=== PATIENT | female | born 1965 | race Caucasian/White ===

== ENCOUNTER 2019-12-29 01:47 | Emergency (ER) | payer BC, SELFPAY ==
--- NOTE | ~2019-12-29 | XR_ITS ---
EXAMINATION: XR chest 2V DATE: 12/29/2019 02:54 INDICATION: Cough and shortness of breath. TECHNIQUE: Frontal and lateral views of the chest were obtained. COMPARISON: None. FINDINGS: There is blunting of the posterior costophrenic angles. No pneumonia or pneumothorax. The h eart size is normal. IMPRESSION: 1. Blunting of the posterior costophrenic angles, consistent with scarring versus tiny pleural effusi ons. Reviewed, dictated and finalized at location A. IMPRESSION: 1. Blunting of the posterior costophrenic angles, consistent with scarring vers us tiny pleural effusions.
--- NOTE | 2019-12-29 01:54 | ECG_ITS ---
Measurements Intervals [place] Rate: 96 P: 34 AL: 175 QRS: -10 QRSD: 88 T: 45 QT: 330 QTc: 418 Interpretive Statements SINUS RHYTHM BORDERLINE R WAVE PROGRESSION, ANTERIOR LEADS BASELINE WANDER- I, III BORDERLINE ECG Electronically Signed On 12-29-2019 7:31:40 CDT by Washington Hughes D.O.
--- NOTE | 2019-12-29 01:57 | ED.SOB ---
HPI - SOB/Dyspnea General Chief Complaint: Shortness of Breath/Dyspnea Stated Complaint: SOB Time Seen by Provider: 12/29/19 01:48 Source: RN notes reviewed History of Present Illness HPI Narrative: Patient presents emergency department from home for shortness of breath. Patient states that she woke from sleep approximately 30 minutes ago feeling like she was drowning . She states she is felt short of breath since that time with a wet cough. She states she went to bed at 11 PM with no symptoms has felt fine all day today denies any fevers or chills chest pain abdominal pain nausea vomiting or any other symptoms. Patient states she does have a history of sleep apnea and supposed to wear CPAP machine but has not worn it for several years patient states she also had a history of GERD in the past and used to be on a PPI but it stopped after she had a bypass surgery Related Data Allergies Allergy/AdvReac Type Severity Reaction Status Date / Time No Known Allergies Allergy Unknown Unverified 10/09/16 10:33 Review of Systems Review of Systems: Narrative: Gen.: Denies fevers or chills ENT: Denies congestion Respiratory: See HPI CV: Denies chest pain or palpitations GI: Denies abdominal pain nausea, emesis or diarrhea Musculoskeletal: Denies back pain or muscle pain Neuro: Denies numbness, tingling, weakness or focal weakness Skin: Denies rash Except as documented, all other systems reviewed and negative [facility] Past Medical History Medical History (Updated 12/29/19 @ 04:17 by Dylan Perez DO) Diabetes mellitus GERD (gastroesophageal reflux disease) Hypercholesterolemia Hypertension Sleep apnea Social History Social History Smoking status: Never smoker Alcohol intake: current Exam Narrative: Exam Narrative: APPEARANCE: No acute distress, nontoxic, resting in bed EYES: EOMI HEENT: Normocephalic, atraumatic, OMM RESPIRATORY: No respiratory distress Clear to auscultation bilaterally with no rhonchi wheezing or rales. CARDIOVASCULAR: Regular rate and rhythm without murmurs rubs or gallops. ABDOMINAL: Soft, nontender, nondistended, no rebound or guarding MUSCULOSKELETAl: Moves all extremities. No clubbing, cyanosis or edema. NEURO: Awake and alert. Following commands, speech normal, no focal deficits SKIN:: Warm, dry. No rashes lesions or abrasions PSYCHIATRIC: Normal affect/mood, Course Course Emergency Course: Patient states she felt better in the ER but continued states she felt like at times something would come up in her throat and she would cough on it patient was given a GI cocktail with resolution of the symptoms Patient states since having GI cocktail her symptoms are resolved feels ready for discharge Discussed with patient results of workup and diagnosis. Discussed need for follow-up with primary care, proper use of medication, and reasons to return to the emergency department. Patient understands and agrees to current treatment plan Vital Signs Vital signs: Vital Signs Temperature 96.6 F L 12/29/19 01:59 Pulse Rate 98 12/29/19 01:59 Respiratory Rate 19 12/29/19 01:59 Blood Pressure 178/85 H 12/29/19 01:59 Pulse Oximetry 99 12/29/19 01:59 Temperature 96.6 F L 12/29/19 01:59 Pulse Rate 100 12/29/19 03:45 Respiratory Rate 16 12/29/19 03:45 Blood Pressure 162/66 H 12/29/19 03:45 Pulse Oximetry 99 12/29/19 03:45 MDM - SOB/Dyspnea MDM Narrative Medical decision making narrative: Patient has dyspnea of unclear etiology. No wheezing on clinical exam. Low risk well score, PE is felt unlikely. No abnormalities noted on chest x-ray. Patient?s EKG is without high-risk changes. Oxygen saturations are normal. Patient is felt to be a reasonable candidate for additional evaluation as an outpatient. Lab Data Result diagrams: 12/29/19 01:57 12/29/19 01:57 Labs: Lab Results 12/29/19 12/29/1912/28
[2019-12-29 01:59] VITALS: BP 178/85; PULSE 98; RESP 19; TEMP 35.9; O2SAT 99
[2019-12-29 02:07] LABS: Basophils Absolute Auto 0.1 K/mm3 (0.0-0.1); Basophils Percent Auto 0.5 % (0.2-1.2); Eosinophils Absolute Auto 0.1 K/mm3 (0-0.3); Eosinophils Percent Auto 1.2 % (0-4.4); Hemoglobin 14.2 g/dL (12.0-15.0); Immature Granulocyte Absolute 0.05 K/mm3 (0.00-0.031); Immature Granulocyte Percent A 0.5 % (0-0.5); Immature Platelet Fraction Pct 12.5 % (0.9-11.2); Lymphocytes Absolute Auto 4.07 K/mm3 (0.9-3.2); Lymphocytes Percent Auto 42.9 % (18.3-44.2); Mean Corpuscular Volume 90.9 fl (80-100); Mean Platelet Volume 13.7 fl (7.4-10.4); Monocytes Absolute Auto 0.7 K/mm3 (0.1-0.6); Monocytes Percent Auto 7.8 % (2.6-8.5); Neutrophils Absolute Auto 4.5 K/mm3 (1.3-6.7); Neutrophils Percent Auto 47.1 % (45.5-73.1); Platelet Count Result 173 k/mm3 (150-375); Red Blood Count 4.73 M/mm3 (4.2-5.4); Red Cell Distribution Width 12.7 % (11.5-14.5); White Blood Count 9.5 K/mm3 (4.5-10.0)
[2019-12-29] MEDS: ALBUTEROL SULFATE NEB 2.5 MG/0.5 ML INH 5 MG INHALATION (02:11)
[2019-12-29] MEDS: IPRATROPIUM BR 0.02% INH SOLN 0.5 MG/2.5 ML VIAL INHALATION (02:11)
[2019-12-29 02:16] LABS: INR 0.9; Prothrombin Time 11.9 Seconds (11.1-14.7)
[2019-12-29 02:17] LABS: Blood Urea Nitrogen 16 mg/dL (7-17); Calcium 9.4 mg/dL (8.4-10.2); Carbon Dioxide 26 mmol/L (22-30); Chloride 103 mmol/L (98-107); Estimated CRCL calculation 85 ml/min; Estimated Glomerular Filt Rate > 60; Glucose 229 mg/dL (65-105); Partial Thromboplastin Time 23.5 SECONDS (22.3-36.8); Sodium 138 mmol/L (137-145)
[2019-12-29 02:26] LABS: Alveolar/Arterial O2 Gradient 36.5 mmHg; Base Excess ABG 0.5 mEq/l (+/-2.0); Fractional Inspired Oxygen 21 %; HCO3 ABG 25.2 mEq/l (22.0-26.0); Oxygen Content ABG 17.8 %vol (16.0-22.0); Oxygen Saturation ABG 92.5 % (95.0-100.0); Oxyhemoglobin 90.4 % THb (90.0-100.0); PCO2 ABG 41.2 mmHg (35.0-45.0); PO2 ABG 63.9 mmHg (80.0-100.0); PO2 FiO2 Ratio Arterial Blood 3.04 %; pH ABG 7.405 (7.350-7.450)
[2019-12-29 02:27] LABS: Device ROOM AIR; Site Drawn RIGHT BRACHIAL
[2019-12-29 02:29] LABS: NT Pro B Type Natriuretic Pept 30 PG/ML (5-100); Troponin I < 0.012 ng/mL (0.000-0.034)
[2019-12-29 02:30] VITALS: BP 163/77; PULSE 88; PULSE 99; RESP 13; RESP 19; O2SAT 100
[2019-12-29 02:36] VITALS: PULSE 86; RESP 20
[2019-12-29 03:00] VITALS: BP 124/49; PULSE 107; RESP 18; O2SAT 97
[2019-12-29 03:45] VITALS: BP 162/66; PULSE 100; RESP 16; O2SAT 99
--- NOTE | 2019-12-29 03:45 | PC.NURSE ---
pt states she feels a lot better than she did when she first arrived to ed. she states since shes gotten the GI cocktail, she still has the build up feeling in her chest but doesn't feel the need to cough it up anymore. notified.
[2019-12-29 04:33] VITALS: BP 134/65; PULSE 96; RESP 14; O2SAT 94
== END 2019-12-29 04:44 | disposition home or self-care (01) ==
PROVIDERS: Emergency Provider Emergency Medicine; PCP Internal Medicine
DX: K21.9 Gastro-esophageal reflux disease without esophagitis (principal); R06.00 Dyspnea, unspecified; E11.9 Type 2 diabetes mellitus without complications; E78.00 Pure hypercholesterolemia, unspecified; I10 Essential (primary) hypertension; G47.30 Sleep apnea, unspecified; R94.31 Abnormal electrocardiogram [ECG] [EKG]
CPT/HCPCS: 36415; 36600; 71046; 80048; 82805; 83880; 84484; 85025; 85055; 85610; 85730; 93005; 94640; 99284; A9270

== ENCOUNTER → 2020-08-20 10:33 | Outpatient (CLI) | payer BC, SELFPAY ==
--- NOTE | ~2020-08-20 | US_ITS ---
EXAMINATION: US pelvic complete EXAM DATE: 08/20/2020 11:44 INDICATION: Endometrial stripe, screening. Abnormal discharge during periods. TECHNIQUE: Pelvic transabdominal sonogram was performed. There are multiple grayscale and Doppler im ages available for interpretation. There is no prior study for comparison. FINDINGS: Uterus measures 15.7 x 10.5 x 1.2 cm, with a focal region most likely centrally positioned heterogeneous and relatively avascular mass measuring 7.8 cm, most likely a fibroid (this is likely the same mass identified on prior ultrasound measuring 5.3 cm, with increase in size). This is obscur ing the endometrium which is not well-visualized. There is no free pelvic fluid. Right adnexa: The ovary is not identified. There is no adnexal mass. Left adnexa: The ovary is not identified. There is no adnexal mass. IMPRESSION: Centrally positioned uterine mass most likely fibroid with interval increase in size comp ared to 2016. Endometrium is obscured by this and not well evaluated. If there is further clinical co ncern, pelvic MRI without and with contrast could be obtained. Reviewed, dictated and finalized at location A. L HANDLER IMPRESSION: Centrally positioned uterine mass most likely fibroid with interval increase in size compared to 2016. Endometrium is obscured by this and not wel l evaluated. If there is further clinical concern, pelvic MRI without and with contrast could be obtained.
--- NOTE | ~2020-08-20 | DEXA_ITS ---
Bone Density Report Name: Estephanie Davis Age: 55 Sex: Female Ethnicity: White Date of : 1965 Indication: screening for osteoporosis; Referring Provider: Camille, Lisa Study: Bone densitometry was performed. Exam Date: August 20, 2020 Accession number: [id number] Bone Density: Region BMD T-score Z-score Classification AP Spine (L1-L4) 1.174 1.2 2.1 Normal Femoral Neck (Left) 1.096 2.2 3.2 Normal Total Hip (Left) 1.288 2.8 3.4 Normal Femoral Neck (Right) 1.095 2.2 3.2 Normal Total Hip (Right) 1.254 2.6 3.2 Normal Total Hip Mean 1.271 2.7 3.3 Normal World Health Organization criteria for BMD impression classify patients as: Normal (T-score at or above -1.0), Osteopenia (T-score between -1.0 and -2.5), or Osteoporosis (T-score at or below -2.5). 10-year Fracture Risk: FRAX not reported because: Premenopausal woman All T-scores for Spine Total, Hip Total, Femoral Neck at or above -1.0 Treated for osteoporosis Clinical Information Provided by Patient: Is being treated for osteoporosis Has used the following medications: HRT (i.e. estrogen/hormone therapy), Vitamin D, Calcium, MTV Patient maximum height was 64.0 No regular weight bearing exercise Does not regularly consume dairy products Drinks caffeinated beverages Onset of menses at age 14 Premenopausal Number of children 1 Missed period for more than 6 months in a row Impression: The patient's bone mass is within expected range for age, gender and ethnicity. Discussion: It is important to ask patients whether they are taking their medications and to encourage continued and appropriate compliance with their osteoporosis therapies to reduce fracture risk. It is also important to review their risk factors and encourage appropriate calcium and vitamin D intakes, exercise, fall prevention and other lifestyle measures. Follow-Up: Consider a repeat BMD and Vertebral Fracture Assessment (VFA) exam in 2 years or sooner if medically necessary, to reassess this patient's status. Reported by: JANNY on 08/20/2020 11:26:00 AM. Reviewed, dictated and finalized at location AYariel TAVARES
--- NOTE | ~2020-08-20 | MM_ITS ---
EXAMINATION: MM screening kait BI w tang HISTORY: Screening mammogram TECHNIQUE: Craniocaudal and mediolateral oblique 3-D tomosynthesis images were obtained and synthetic 2-D images were generated. CAD analysis was submitted and interpreted. COMPARISON: 04/04/2016, 03/10/2014, 12/16/2012 bilateral digital screening mammogram examinations BREAST PARENCHYMAL COMPOSITION: There are scattered areas of fibroglandular density. FINDINGS: Numerous punctate benign microcalcifications are noted bilaterally, more numerous on the le ft. There is no evidence of suspicious mass, calcification, or architectural distortion to suggest ma lignancy in either breast. There has been no suspicious interval change. IMPRESSION: 1. No mammographic evidence of malignancy. 2. Recommend routine screening mammography in one year. BI-RADS Category 2: Benign finding(s). Reviewed, dictated and finalized at location A. 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
== END ==
PROVIDERS: Visit Provider Nurse Practitioner
DX: Z12.31 Encounter for screening mammogram for malignant neoplasm of breast (principal); Z78.0 Asymptomatic menopausal state; N95.0 Postmenopausal bleeding; N85.8 Other specified noninflammatory disorders of uterus
CPT/HCPCS: 76856; 77063; 77067; 77080

== ENCOUNTER 2022-05-05 01:30 | Day surgery (SDC) | payer BC, SELFPAY ==
[2022-04-19 11:51] VITALS: BMI 30.7
[2022-05-05 10:07] VITALS: BP 139/76; PULSE 102; RESP 20; TEMP 36.2; O2SAT 99; BMI 31.4
--- NOTE | 2022-05-05 10:25 | PM.HPGS ---
History of Present Illness History of Present Illness Consent: Risks, benefits, and alternatives have been discussed and questions answered. Patient agrees to proceed with procedure. Chief complaint: neoplasm screening Narrative: Estephanie Davis is a 57 year old female who is here for colon cancer screening, And for follow-up of ulcerative proctitis which was diagnosed 5 years ago. Review of Systems Review of Systems: All systems reviewed & are unremarkable except as noted in HPI and below PMFSH Past Medical History Medical History Diabetes mellitus GERD (gastroesophageal reflux disease) Hypercholesterolemia Hypertension Sleep apnea Surgical History Surgical History Gastric bypass status for obesity History of carpal tunnel release History of hysteroscopy Social History Social History Social History: Caffeine-coffee daily Smoking status: Never smoker Alcohol intake: never Substance use type: does not use Living arrangements: with family Spiritual care concerns: No Meds Home Medications and Allergies Home Medications Medication Instructions Recorded Confirmed Type atorvastatin 20 mg tablet 20 mg PO DAILY 12/31/19 04/19/22 History cholecalciferol (vitamin D3) 50 50 mcg PO DAILY 12/31/19 04/19/22 History mcg (2,000 unit) capsule insulin lispro 100 unit/mL See Rx Instructions subcut 12/31/19 04/19/22 History subcutaneous solution (Humalog USEASDIRECTD U-100 Insulin) losartan 50 mg tablet 50 mg PO DAILY 12/31/19 04/19/22 History medroxyprogesterone 2.5 mg tablet 2.5 mg PO DAILY 12/31/19 04/19/22 History spironolactone 100 mg tablet 100 mg PO DAILY 12/31/19 04/19/22 History venlafaxine 150 mg See Rx Instructions .Route 04/05/22 04/19/22 Rx capsule,extended release 24 hr .COMPLEX #90 caps venlafaxine 75 mg capsule,extended See Rx Instructions .Route 04/17/22 04/19/22 Rx release 24 hr .COMPLEX #90 caps empagliflozin 25 mg tablet 25 mg PO DAILY 04/19/22 04/19/22 History (Jardiance) ferrous sulfate 325 mg (65 mg 325 mg PO EVERY OTHER DAY 04/19/22 04/19/22 History iron) tablet Allergies Allergy/AdvReac Type Severity Reaction Status Date / Time No Known Allergies Allergy Unknown Verified 05/05/22 10:06 Vital Signs Vital Signs - 24 hr 05/05/22 10:07 Temperature 36.2 C L Pulse Rate 102 H Respiratory Rate 20 Blood Pressure 139/76 Pulse Oximetry 99 Oxygen Delivery Room Air Exam Const: General: alert Orientation/consciousness: patient oriented x3 Resp: Auscultation: clear to auscultation bilaterally Cardio: Rhythm: regular rhythm GI: GI Palp: Yes Soft to palpation and No Tenderness to palpation present (GI) Neuro: General: patient oriented x3 Assessment and Plan Assessment and plan (1) Screening for colon cancer: Code(s): Z12.11 - Encounter for screening for malignant neoplasm of colon Status: Acute Assessment and Plan: Colonoscopy with possible biopsy or polypectomy or cautery or injection of substances.
[2022-05-05] MEDS: LACTATED RINGERS 1,000 ML 150 ML IV CONT (10:26)
--- NOTE | 2022-05-05 10:28 | SUR.PREOP ---
BS 75. Pt asymptomatic. Dr. Hercules at bedside and aware of reading. Insulin pump turned off. Pt understands to monitor physical signs and symptoms of hypoglycemia, but states she feels well at this time.
[2022-05-05 10:31] LABS: Glucose Point of Care 75 mg/dl (65-105)
--- NOTE | 2022-05-05 10:31 | WPDANESEPPF ---
Anes - Initial Pre Proc Eval Procedure: Operation Date: 05/05/22 11:30 Proposed Procedures p Screening Colonoscopy - Tung Rivera MD Date/Time: 05/05/22 10:31 Surgeon: Tung Rivera MD Pre Op Diagnosis: neoplasm screening Patient Data Age: 57 Gender: F Height: 1.6 m Weight: 80.3 kg Last Vital Signs Temp 97.1 F L 05/05/22 10:07 Pulse 102 H 05/05/22 10:07 Resp 20 05/05/22 10:07 BP 139/76 05/05/22 10:07 Pulse Ox 99 05/05/22 10:07 O2 Del Method Room Air 05/05/22 10:07 Allergies Allergy/AdvReac Type Severity Reaction Status Date / Time No Known Allergies Allergy Unknown Verified 05/05/22 10:06 Home Medications Medication Instructions Recorded Confirmed Type atorvastatin 20 mg tablet 20 mg PO DAILY 12/31/19 04/19/22 History cholecalciferol (vitamin D3) 50 50 mcg PO DAILY 12/31/19 04/19/22 History mcg (2,000 unit) capsule insulin lispro 100 unit/mL See Rx Instructions subcut 12/31/19 04/19/22 History subcutaneous solution (Humalog USEASDIRECTD U-100 Insulin) losartan 50 mg tablet 50 mg PO DAILY 12/31/19 04/19/22 History medroxyprogesterone 2.5 mg tablet 2.5 mg PO DAILY 12/31/19 04/19/22 History spironolactone 100 mg tablet 100 mg PO DAILY 12/31/19 04/19/22 History venlafaxine 150 mg See Rx Instructions .Route 04/05/22 04/19/22 Rx capsule,extended release 24 hr .COMPLEX #90 caps venlafaxine 75 mg capsule,extended See Rx Instructions .Route 04/17/22 04/19/22 Rx release 24 hr .COMPLEX #90 caps empagliflozin 25 mg tablet 25 mg PO DAILY 04/19/22 04/19/22 History (Jardiance) ferrous sulfate 325 mg (65 mg 325 mg PO EVERY OTHER DAY 04/19/22 04/19/22 History iron) tablet Patient hx anesthesia problems: none Family hx anesthesia problems: none Results Review: All pre-operative results and documents have been reviewed as part of the pre-operative evaluation. [facility] Past Medical History Medical History Diabetes mellitus GERD (gastroesophageal reflux disease) Hypercholesterolemia Hypertension Sleep apnea Surgical History Surgical History Gastric bypass status for obesity History of carpal tunnel release History of hysteroscopy Social History Social History Social History: Caffeine-coffee daily Smoking status: Never smoker Alcohol intake: never Substance use type: does not use Living arrangements: with family Spiritual care concerns: No Anes - Eval Final PreProcedure Day of Procedure 05/05/22 10:31 Patient weight: obese Heart: regular rate and rhythm Lungs: clear to auscultation Neurological: alert and oriented Last oral intake: >/= 8 hours ASA classification: III Emergent: no Anesthetic plan: proceed Anesthesia type and monitoring: general GIVS and standard monitoring Results Review: All pre-operative results and documents have been reviewed as part of the pre-operative evaluation. Informed Consent: The patient's anesthetic plan and its attendant risks and benefits were discussed with the patient/family/POA. Questions were solicited and answers provided to the satisfaction of the patient/family/POA.
[2022-05-05 11:11] VITALS: BP 119/70; PULSE 97; RESP 20; O2SAT 98
[2022-05-05 11:21] VITALS: BP 134/80; PULSE 107; RESP 20; O2SAT 100
[2022-05-05 11:31] VITALS: BP 140/76; PULSE 92; RESP 20; O2SAT 100
== END 2022-05-05 11:47 | disposition home or self-care (01) ==
PROVIDERS: PCP Internal Medicine; Visit Provider Internal Medicine Gastroenterology
PROC: 0DJD8ZZ Inspection of Lower Intestinal Tract, Via Natural or Artificial Opening Endoscopic (ICD-10-PCS; CPT 45378; principal; 2022-05-05 11:30)
DX: Z12.11 Encounter for screening for malignant neoplasm of colon (principal); K63.5 Polyp of colon; K51.20 Ulcerative (chronic) proctitis without complications; Z79.4 Long term (current) use of insulin; E11.9 Type 2 diabetes mellitus without complications; K21.9 Gastro-esophageal reflux disease without esophagitis; E78.00 Pure hypercholesterolemia, unspecified; I10 Essential (primary) hypertension; G47.30 Sleep apnea, unspecified; E66.9 Obesity, unspecified; Z68.31 Body mass index [BMI] 31.0-31.9, adult
CPT/HCPCS: 45380; 45385; 82948; 88305; J2704; J7120

== ENCOUNTER → 2023-05-04 10:21 | Outpatient (CLI) | payer BC, SELFPAY ==
--- NOTE | ~2023-05-04 | MM_ITS ---
EXAMINATION: MM screening kait BI w tang HISTORY: Screening mammogram TECHNIQUE: Craniocaudal and mediolateral oblique 3-D tomosynthesis images were obtained and synthetic 2-D images were generated. CAD analysis was submitted and interpreted. COMPARISON: 08/20/2020, 04/04/2016, 03/10/2014 BREAST PARENCHYMAL COMPOSITION: There are scattered areas of fibroglandular density. FINDINGS: Scattered benign-appearing calcifications are present. No suspicious mass, calcification, o r architectural distortion are identified in either breast to suggest malignancy. There has been no s uspicious interval change. IMPRESSION: 1. No mammographic evidence of malignancy. 2. Recommend routine screening mammography in one year. BI-RADS Category 2: Benign finding(s). Reviewed, dictated and finalized at location A.
== END ==
PROVIDERS: PCP Nurse Practitioner; Visit Provider Nurse Practitioner
DX: Z12.31 Encounter for screening mammogram for malignant neoplasm of breast (principal)
CPT/HCPCS: 77063; 77067

== ENCOUNTER 2024-03-25 10:53 | Outpatient (CLI) | payer BC, SELFPAY ==
[2024-03-25 13:11] LABS: Basophils Percent Auto 0.4 % (0.2-1.2); Eosinophils Absolute Auto 0.1 K/mm3 (0-0.3); Eosinophils Percent Auto 1.9 % (0-4.4); Immature Granulocyte Absolute 0.05 K/mm3 (0.00-0.031); Immature Granulocyte Percent A 0.7 % (0-0.5); Immature Platelet Fraction Pct 13.2 % (0.9-11.2); Lymphocytes Absolute Auto 2.08 K/mm3 (0.9-3.2); Lymphocytes Percent Auto 30.7 % (18.3-44.2); Mean Corpuscular HGB Conc 33.3 g/dl (32-36); Mean Corpuscular Hemoglobin 32.5 pg (26-34); Mean Corpuscular Volume 97.4 fl (80-100); Mean Platelet Volume 13.4 fl (7.4-10.4); Monocytes Absolute Auto 0.5 K/mm3 (0.1-0.6); Monocytes Percent Auto 7.8 % (2.6-8.5); Neutrophils Percent Auto 58.5 % (45.5-73.1); Platelet Count Result 170 k/mm3 (150-375); Red Blood Count 4.62 M/mm3 (4.2-5.4); Red Cell Distribution Width 12.8 % (11.5-14.5); White Blood Count 6.8 K/mm3 (4.5-10.0)
[2024-03-25 13:14] LABS: Alanine Aminotransferase 24 U/L (6-35); Alkaline Phosphatase 63 U/L (38-126); Anion Gap 9 mmol/L (4-12); Aspartate Amino Transferase 38 U/L (14-36); Bilirubin,Total 0.3 mg/dL (0.2-1.3); Blood Urea Nitrogen 17 mg/dL (7-17); Carbon Dioxide 27 mmol/L (22-30); Chloride 106 mmol/L (98-107); Estimated Glomerular Filt Rate 57; Glucose 115 mg/dL (65-110); Potassium 4.1 mmol/L (3.4-5.0); Sodium 142 mmol/L (137-145)
== END 2024-03-25 10:54 | disposition home or self-care (01) ==
LOC: ANHGOSHLAB 10:55
PROVIDERS: PCP Nurse Practitioner; Visit Provider Nurse Practitioner
DX: Z01.818 Encounter for other preprocedural examination (principal); E11.9 Type 2 diabetes mellitus without complications
CPT/HCPCS: 36415; 80053; 83036; 85025; 85055

== ENCOUNTER 2024-05-06 11:03 | Outpatient (CLI) | payer BC, SELFPAY ==
--- NOTE | ~2024-05-06 | MM_ITS ---
EXAMINATION: MM screening kait BI w tang HISTORY: Screening TECHNIQUE: Craniocaudal and mediolateral oblique 3-D tomosynthesis images were obtained and synthetic 2-D images were generated. CAD analysis was submitted and interpreted. COMPARISON: Comparison to multiple prior studies sequentially, with oldest reviewed study dated 12/2015. BREAST PARENCHYMAL COMPOSITION: Not dense: There are scattered areas of fibroglandular density. FINDINGS: There are scattered benign-appearing breast calcifications unchanged. There is no evidence of suspicious mass, calcification, or architectural distortion to suggest malignancy in either breast . There has been no suspicious interval change. IMPRESSION: 1. No mammographic evidence of malignancy. 2. Recommend routine screening mammography in one year. BI-RADS Category 2: Benign finding(s). Reviewed, dictated and finalized at location B.
== END 2024-05-06 11:04 | disposition home or self-care (01) ==
LOC: MICIMG 11:04
PROVIDERS: PCP Nurse Practitioner; Visit Provider Nurse Practitioner
DX: Z12.31 Encounter for screening mammogram for malignant neoplasm of breast (principal)
CPT/HCPCS: 77063; 77067

== ENCOUNTER 2025-02-23 15:18 | Outpatient (CLI) | payer BC, SELFPAY ==
--- NOTE | ~2025-02-23 | XR_ITS ---
[id number] 02/23/2025 15:47 Indication: Radiculopathy Procedure: 3 view cervical spine Comparison: No prior studies for comparison. Findings: There is disc narrowing and endplate hypertrophy at C6-7. No fracture, subluxation or dislo cation. Odontoid process is normal. Lateral masses normally aligned. Lung apices are normal. No preve rtebral soft tissue swelling. Impression: 1: Moderate spondylosis at C6-7. Reviewed, dictated and finalized at location A. Impression: 1: Moderate spondylosis at C6-7.
== END 2025-02-23 15:19 | disposition home or self-care (01) ==
LOC: GOSHIMG 15:18
PROVIDERS: PCP Nurse Practitioner; Visit Provider Nurse Practitioner
DX: M47.812 Spondylosis without myelopathy or radiculopathy, cervical region (principal)
CPT/HCPCS: 72040

== ENCOUNTER 2025-04-01 07:49 | Outpatient (CLI) | payer BC, SELFPAY ==
--- NOTE | ~2025-04-01 | DEXA_ITS ---
Bone Density Report Name: CAMILA GRAHAM Age: 59 Sex: Female Ethnicity: White Date of : 1965 Indication: postmenopausal; screening for osteoporosis; Referring Provider: Sherrie Arias Study: Bone densitometry was performed. Exam Date: April 01, 2025 Accession number: [id number] Bone Density: Region BMD T-score Z-score Classification AP Spine(L1-L4) 0.953 -0.9 0.4 Normal Femoral Neck (Left) 1.030 1.6 2.8 Normal Total Hip (Left) 1.174 1.9 2.7 Normal Femoral Neck (Right) 0.987 1.2 2.4 Normal Total Hip (Right) 1.144 1.7 2.5 Normal Total Hip Mean 1.159 1.8 2.6 Normal World Health Organization criteria for BMD impression classify patients as: Normal (T-score at or above -1.0), Osteopenia (T-score between -1.0 and -2.5), or Osteoporosis (T-score at or below -2.5). 10-year Fracture Risk: FRAX not reported because: All T-scores for Spine Total, Hip Total, Femoral Neck at or above -1.0 Previous Exams: -- Region Exam Age BMD T-score BMD Change BMD Change Date g/cm2 vs Baseline vs Previous -- AP Spine (L1-L4) 04/01/2025 59 0.953 -0.9 -18.9%# -18.9%# 08/20/2020 55 1.174 1.2 Total Hip(Left) 04/01/2025 59 1.174 1.9 -8.8%# -8.8%# 08/20/2020 55 1.288 2.8 Total Hip(Right) 04/01/2025 59 1.144 1.7 -8.7%# -8.7%# 08/20/2020 55 1.254 2.6 -- *Denotes significance at 95% confidence level, LSC for AP Spine = 0.022 g/cm2, LSC for Total Hip = 0.027 g/cm2 # Denotes dissimilar scan types or analysis methods Clinical Information Provided by Patient: Has used the following medications: Vitamin D, Calcium Patient maximum height was 63.5 Menopause Age: 57 No regular weight bearing exercise Does not regularly consume dairy products Drinks caffeinated beverages Onset of menses at age 14 Number of children 1 Impression: The patient has normal bone mass. Unable to evaluate interval change due to the use of different scan modes. Discussion: BONE DENSITY IS ABOVE THE MINIMUM DESIRABLE LEVEL AT ALL SKELETAL SITES TESTED. This patient?s bone mineral density is above the minimum desirable level (T-score -1.0 or better) at all sites measured. The patient should follow a healthful lifestyle (good nutrition with adequate calcium and vitamin D, and appropriate weight-bearing exercise). Follow-Up: Consider repeating this study in 5 years or sooner if there is some new clinical indication. Reported by: ARIANE on 04/01/2025 8:25:00 AM. Reviewed, dictated and finalized at location A.
== END 2025-04-01 07:50 | disposition home or self-care (01) ==
LOC: MICIMG 07:50
PROVIDERS: PCP Nurse Practitioner
DX: Z13.820 Encounter for screening for osteoporosis (principal); Z78.0 Asymptomatic menopausal state
CPT/HCPCS: 77080

== ENCOUNTER 2025-04-30 08:00 | Outpatient (RCR) | payer BC, SELFPAY ==
--- NOTE | 2025-04-03 11:04 | OPREHPOC ---
Outpatient Therapy Plan of Care This is a Multidisciplinary Plan of Care that may contain components documented by all disciplines (PT, OT, and ST.) PT Problem 1 PT Problem #1 Knowledge Deficit PT Goal 1 Goal / Goal Update Patient to demonstrate independence with HEP for improved self-reliance of symptom management. Target Visit 4 PT Problem 2 PT Problem #2 Pain PT Goal 1 Goal / Goal Update 1. Patient to report 50% improvement in quantity and quality of sleep. 2. Patient to report 50% reduction of PARRA frequency and severity. 3. The patient will have a 10 point improvement on the NDI for decreased handicap due to neck pain. Target Visit 8 PT Problem 3 PT Problem #3 Impaired Endurance PT Goal 1 Goal / Goal Update Patient to report increased driving tolerance with RUE extended to >30 minutes to improve endurance required for travel. Target Visit 8 PT Problem 4 PT Problem #4 Impaired Flexibility PT Goal 1 Goal / Goal Update Patient to demonstrate a reduction of UT and sub occipitals tone to improve tissue extensibility and facilitate a reduction of PARRA's. Target Visit 8
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
--- NOTE | 2025-04-30 08:48 | PTOPDC ---
Assessment and note entered by Demetrius Celeste, PT Evaluation Information Assessment Status Discharge ICD-10 Condition Codes (PT) Radiculopathy, cervical M54.13 Subjective Information Pt reports she has noticed no change in her symptoms of cervical and UE twitches/ fistulations in her R arm. She states the arm is more constant but the neck seems to be related to stress and causes tension headache. Reported Pain Level Pain Score 0: Self Report Assessment PT Clinical Summary patient demonstrated improvement in objective cervical range of motion (ROM) throughout the treatment period. However, this functional gain did not translate to subjective relief. The patient reports no change in cervical and right upper extremity (UE) twitches/fasciculations. Patient to discharge from physical therapy this date and continue with updated home exercise program as instructed. Patient to contact physical therapist or primary care provider if questions or concerns arise. Plan of Care PT Services Indicated No
== END 2025-04-30 15:42 | disposition home or self-care (01) ==
LOC: ANHGOSHPT 08:00
PROVIDERS: PCP Nurse Practitioner; Visit Provider Nurse Practitioner
DX: M54.12 Radiculopathy, cervical region (principal)
CPT/HCPCS: 97110; 97112; 97140; 97161; 97530

== ENCOUNTER 2025-05-08 11:27 | Outpatient (CLI) | payer BC, SELFPAY ==
--- NOTE | ~2025-05-08 | XR_ITS ---
EXAMINATION: XR hip RT min 2V, 05/08/2025 11:34 CDT HISTORY: Pain in unspecified hip, 2 month pain, no inj, no surg COMPARISON: No comparisons available. Findings: No acute fracture or malalignment. No significant degenerative changes. Soft tissues unremarkable. Impression: No acute fracture or malalignment. Reviewed, dictated and finalized at location P. Impression: No acute fracture or malalignment.
== END 2025-05-08 11:28 | disposition home or self-care (01) ==
PROVIDERS: PCP Nurse Practitioner; Visit Provider Nurse Practitioner
DX: M25.551 Pain in right hip (principal)
CPT/HCPCS: 73502

== ENCOUNTER 2025-06-18 12:30 | Outpatient (RCR) | payer BC, SELFPAY ==
--- NOTE | 2025-05-27 14:36 | OPREHPOC ---
Outpatient Therapy Plan of Care This is a Multidisciplinary Plan of Care that may contain components documented by all disciplines (PT, OT, and ST.) PT Problem 1 PT Problem #1 Knowledge Deficit PT Goal 1 Goal / Goal Update 1. Patient to demonstrate independence with HEP for improved self-reliance of symptom management. Target Visit 4 PT Problem 2 PT Problem #2 Pain PT Goal 1 Goal / Goal Update 1. Patient to decrease subjective reports of pain to <4/10 for improved ADL tolerance. 2. ??Patient to report improved standing and walking tolerance for increased ADL and IADL endurance. (grocery shopping) Target Visit 8 PT Problem 3 PT Problem #3 Impaired Strength PT Goal 1 Goal / Goal Update 1. Patient will demonstrate improved strength of the bilateral hip abductors and extensors to 4/5 on manual muscle testing in order to improve gait stability and stair negotiation. Target Visit 8 PT Problem 4 PT Problem #4 Impaired Range of Motion PT Goal 1 Goal / Goal Update 1. Patient to demonstrate an increase of SHRUTHI hip external rotation/internal rotation active range of motion within functional limits to show symmetry SHRUTHI. Target Visit 8
--- NOTE | 2025-05-27 14:36 | PTOPEVAL1 ---
Assessment and note entered by Demetrius Celeste PT Evaluation Information Assessment Status Evaluation Diagnosis R sided hip pain ICD-10 Condition Codes (PT) Pain in right hip M25.551 Onset 2 months ago Subjective Information Pt states she started having deep R hip pain that progressively got worse. She now notes her pain levels increase further with activity. Pt states her hip pops and clicks with every step primarily when her hip is extending. Pt states she has a lot of difficulty rolling in bed and increased activity like prolonged walking and lifting when she goes grocery shopping. Reported Pain Level Pain Score 7: Self Report Assessment PT Clinical Summary The patient presents with symptoms consistent with hip labral pathology, specifically reporting deep anterior groin pain, positive FADDIR/KARLA tests, and mechanical clicking. Objective examination reveals restricted hip internal rotation and flexion, alongside notable weakness in the core and hip abductor musculature (Gluteus Medius). Gait analysis indicates a compensatory pattern, often showing a mild antalgic limp and poor pelvic stability during single-leg stance. The primary goals of therapy will be to achieve pain-free range of motion, significantly increase lumbopelvic and gluteal strength, and completely normalize gait mechanics. Treatment will focus on phased progression, starting with isolated muscle activation and movement modification, and advancing toward functional, multi-planar strengthening. Plan of Care Interventions Aquatic Therapy,Gait Training,Hot Pack/Cold Pack, Manual Therapy,Mechanical Traction,Neuro Re- education,Therapeutic Activities,Therapeutic Exercise,Other PT Services Indicated Yes Treatment Frequency and 2x week 8 visits Duration These treatments will address the objective and functional deficits as defined above. The patient will be advanced safely and appropriately in order for the patient to progress towards his/her prior level of function. Additional exercises will be introduced and as well as a comprehensive home exercise program upon discharge, if needed, ?to ensure carryover of functional gains achieved in the clinic. This treatment plan has been reviewed and agreement upon by the patient.
--- NOTE | 2025-06-18 13:16 | PTOPDC ---
Assessment and note entered by Demetrius Celeste, PT Evaluation Information Assessment Status Discharge Diagnosis R sided hip pain ICD-10 Condition Codes (PT) Pain in right hip M25.551 Onset 2 months ago Subjective Information Pt states she is having a bad day today. She notes she was standing for a prolonged time and her pain got so intense that she had to sit down. Pt states overall she feels no change in symptoms or aggravating activities with therapy other than feeling a little stronger in the hips. Pt has extreme difficulty with prolonged standing as this makes it feel like the R hip is locking up. Other notable difficulties include rolling in bed and pivoting on R foot. Reported Pain Level Pain Score 3: Self Report Pain Score 3: Self Report Assessment PT Clinical Summary The patient is being discharged from physical therapy after completing the POC, despite demonstrating objective improvements in right hip range of motion and overall gluteal strength. Subjectively, the patient continues to report high pain levels, frequent clicking, and locking of the right hip joint, which remain consistent with possible labral pathology. These persistent mechanical symptoms significantly limit daily activities, prevent sustained walking / standing , and restrict functional tasks like squatting and pivoting. Given the plateau in progress and limited functional gains, the patient was educated on the need for further medical evaluation. Specifically, the patient was instructed to contact their Primary Care Physician to discuss scheduling advanced imaging and to consider an intra-articular injection, the results of which can help confirm the source of symptoms. Plan of Care PT Services Indicated No
== END 2025-06-19 10:26 | disposition home or self-care (01) ==
LOC: ANHGOSHPT 12:30
PROVIDERS: PCP Nurse Practitioner; Visit Provider Nurse Practitioner
DX: M25.551 Pain in right hip (principal)
CPT/HCPCS: 97014; 97110; 97112; 97140; 97161; 97530; G0283